=== PATIENT | female | born 1970 | race Caucasian/White ===

== ENCOUNTER 2016-09-15 08:38 | Emergency (ER) | payer MEDICAID ==
[~2016-09-15] VITALS: Ht 152.4 cm; Wt 91.2 kg
[~2016-09-15 08:38] MED LIST: BEN25 PO; IBUP400T22 PO; PRED20TA PO
[2016-09-15 08:39] VITALS: Ht 152.4 cm; Wt 91.2 kg
[2016-09-15] MEDS ORDERED: LIDOCAINE/MYLANTA 40 ML BTL PO STA (08:58)
[2016-09-15] MEDS ORDERED: FAMOTIDINE 20 MG TAB PO STA (08:58)
[2016-09-15] MEDS ORDERED: KETOROLAC 30 MG INJ IM STA (08:58)
[2016-09-15] MEDS ORDERED: BELLADONNA/PHENOBARBITAL TAB PO STA (08:58)
[2016-09-15] MEDS ORDERED: LORAZEPAM 0.5 MG TAB PO ONE (09:00)
[2016-09-15] MEDS ORDERED: MAG355OR14 PO (09:01)
[2016-09-15] MEDS ORDERED: ALPR0.5T PO (09:01)
[2016-09-15] MEDS ORDERED: FAMO40TA52 PO (09:01)
[2016-09-15] MEDS ORDERED: ONDA4TAB8 PO (09:01)
[2016-09-15 10:05] VITALS: BP 134/70; PULSE 86; RESP 16; TEMP 98.4
--- NOTE | 2016-09-15 11:35 | ERD ---
ER Documentation Chief Complaint Date/Time DATE: 09/15/16 TIME: 11:34 Chief Complaint AP WITH VOMITING AND DIARRHEA SINCE YESTERDAY HPI 46-year-old woman presents with full body paresthesias including around the mouth and hands bilaterally, also complains of sharp burning epigastric abdominal pain with intermittent episodes of loose stools and vomiting since yesterday, although she states she has been able to tolerate p.o. and ate breakfast this morning and has had no blood per rectum or melena. Patient denies weight loss, no fevers or chills, no dysuria, no chest pain or shortness of breath. ROS All systems reviewed and are negative except as per history of present illness. Medications Home Meds Active Scripts Ondansetron Hcl* (Zofran*) 4 Mg Tablet, 4 MG PO Q8H Y for NAUSEA AND/OR VOMITING , #15 TAB Prov:SUBHASH MARTINEZ MD 09/15/16 Alprazolam* (Xanax*) 0.5 Mg Tab, 0.5 MG PO TID for ANXIETY, #15 TAB Prov:SUBHASH MARTINEZ MD 09/15/16 Famotidine* (Famotidine*) 40 Mg Tablet, 40 MG PO HS, #30 TAB Prov:SUBHASH MARTINEZ MD 09/15/16 Mag Hydrox/Al Hydrox/Simeth (Maalox Advanced Suspension) 355 Ml Oral.susp, 2 TSP PO TID, #24 OZ Prov:SUBHASH MARTINEZ MD 09/15/16 Discontinued Scripts Prednisone* (Prednisone*) 20 Mg Tab, 40 MG PO DAILY for 4 Days, TAB Prov:BAY RAMOS 05/26/16 Diphenhydramine Hcl* (Benadryl*) 25 Mg Cap, 25 MG PO Q6, #30 CAP Prov:BAY RAMOS 05/26/16 Ibuprofen* (Motrin*) 400 Mg Tab, 400 MG PO Q6H Y for PAIN AND OR ELEVATED TEMP, #30 TAB Prov:VEE AVERY PA-C 04/06/16 Allergies Allergies: Coded Allergies: No Known Drug Allergy (Verified Allergy, Unknown, 09/15/16) PMhx/Soc Anxiety, gastritis, obesity History of Surgery: Yes () Anesthesia Reaction: No Hx Neurological Disorder: No Hx Respiratory Disorders: No Hx Cardiac Disorders: No Hx Psychiatric Problems: No Hx Miscellaneous Medical Probl: No Hx Alcohol Use: No Hx Substance Use: No Hx Tobacco Use: Yes Smoking Status: Former smoker FmHx Family History: No diabetes Physical Exam Vitals Vital Signs Date Time Temp Pulse Resp B/P Pulse Ox O2 Delivery O2 Flow Rate FiO2 09/15/16 10:05 98.4 86 16 134/70 100 Room Air 09/15/16 09:03 131/70 09/15/16 08:57 98.6 85 16 100 Room Air 09/15/16 08:39 97.8 90 18 110/56 99 Physical Exam GENERAL: Well-developed, well-nourished, anxious HEENT: Moist mucous membranes, pink conjunctiva, no cervical spine tenderness or step-off deformities, no goiter, no jaundice or icterus, extraocular movements intact without pain. No submandibular induration, and no pharyngeal erythema NEURO: Alert and oriented 3, cranial nerves II through XII intact bilaterally, pupils equal round reactive to light, no focal deficits or facial asymmetry, sensation intact distally Strength 5/5 in upper and lower extremities bilaterally CARDIAC: Regular rate and rhythm, no murmurs rubs or gallops LUNGS: Clear bilaterally no wheezing crackles or stridor ABDOMEN: Soft nontender, no guarding, no rigidity, no rebound, no psoas sign no obturator sign. Normoactive bowel sounds SKIN: Warm and dry to touch, no abrasions, contusions, or hematomas, no lacerations, no ecchymosis, no target lesions, and without ulcers EXTREMITIES: No clubbing cyanosis or edema, calves are bilaterally symmetrical, no Homans sign, no popliteal cord sign. Distal pulses equal and bilateral PSYCH: Appears anxious Results 24 hrs Current Medications Medications (Trade) Dose Ordered Sig/Agnes Route PRN Reason Start Time Stop Time Status Last Admin Dose Admin Ketorolac Tromethamine (Toradol) 30 mg ONCE STAT IM 09/15/16 08:58 09/15/16 09:00 DC 09/15/16 09:11 Famotidine (Pepcid) 40 mg ONCE STAT PO 09/15/16 08:58 09/15/16 09:00 DC 09/15/16 09:11 Miscellaneous Medication (Gi Cocktail (2)) 40 ml ONCE STAT PO 2/15/17 08:58 09/15/16 09:00 DC 09/15/16 09:10 Belladonna/ Phenobarbital () 2 tab ONCE STAT PO 09/15/16 08:58 09/15/16 09:00 DC 09/15/16 09:11 Lorazepam (Ativan) 0.5 mg ONCE ONCE PO 09/15/16 09:00 09/15/16 09:01 DC 09/15/16 09:11 Procedures/[facility] I administered lorazepam 0.5 mg p.o. for his symptoms as well as a GI cocktail 50 cc p.o., famotidine 40 mg p.o., Toradol 30 mg intramuscular injection. EKG performed, read by me: 84 bpm, normal sinus rhythm, normal axis, no acute ST segment changes, narrow QRS complex, with good R-wave progression in precordial leads. Differential diagnoses considered, included but not limited to acute coronary syndrome, pulmonary embolism, aortic dissection, abdominal aortic aneurysm, sepsis, stroke, meningitis, encephalitis, pneumonia, appendicitis, cholecystitis , bowel obstruction, pyelonephritis, nephrolithiasis, cystitis, as well as metabolic, hematologic, and electrolyte abnormalities. As well as abscess, cellulitis, fractures, and dislocations. Patient feels much better at this time, and vital signs are normal, symptoms have improved. I did give strict instructions to return to the ED if symptoms continue or worsen, patient will otherwise follow-up with primary care physician. Patient understood instructions and agreed to plan. Departure Diagnosis: Primary Impression: Anxiety Additional Impression: Gastritis Gastritis type: unspecified gastritis Chronicity: acute Gastritis bleeding : without bleeding Qualified Code: K29.00 - Acute gastritis without hemorrhage, unspecified gastritis type Condition: Good Patient Instructions: Anxiety Reaction, Gastritis Vs. Ulcer, Vomiting And Diarrhea, Nonspecific (Adult) SUBHASH MARTINEZ MD Sep 15, 2016 11:35
== END 2016-09-15 10:00 | disposition home or self-care (01) ==
LOC: E/R 08:38
DX: F41.9 Anxiety disorder, unspecified (principal); K29.00 Acute gastritis without bleeding; R11.10 Vomiting, unspecified; Z87.891 Personal history of nicotine dependence
CPT/HCPCS: 96372; J1885; Z7502; Z7610; 93005

== ENCOUNTER 2018-02-16 16:26 | Emergency (ER) | END 2018-02-16 18:45 | disposition home or self-care (01) ==

== ENCOUNTER 2018-12-18 05:17 | Emergency (ER) | payer BC, MEDICAID ==
[~2018-12-18] VITALS: Ht 154.9 cm; Wt 83.0 kg
[~2018-12-18 05:17] MED LIST changes: +ACYC800T PO; +ALPR0.5T PO; -BEN25 PO; +FAMO40TA5 PO; +IBUP-1542 PO; -IBUP400T22 PO; +MAG355OR14 PO; +ONDA4TAB8 PO; -PRED20TA PO
[2018-12-18 05:24] VITALS: BP 124/84; PULSE 85; RESP 18; Ht 154.9 cm; Wt 83.0 kg
[2018-12-18] MEDS ORDERED: KETOROLAC 30 MG INJ IM STA (06:02)
[2018-12-18] MEDS ORDERED: BACL10TA PO (06:04)
[2018-12-18] MEDS ORDERED: IBUP-1542 PO (06:04)
--- NOTE | 2018-12-18 06:11 | ERD ---
ER Documentation Chief Complaint Chief Complaint R sided neck pain x a day HPI Patient is a 48-year-old female presents the ER for concerns of right-sided neck pain x1 day. Patient denies falls or trauma. Patient denies fevers or chills. Patient denies any neck stiffness. Patient denies any lower back pain, saddle anesthesia, urine incontinence or stool incontinence. Patient denies any nausea or vomiting. Patient denies any chest pain or shortness of breath. Patient states she did try taking Tylenol with no alleviation of symptoms. Patient states she works in the [employer]. ROS All systems reviewed and are negative except as per history of present illness. Medications Home Meds Active Scripts Baclofen* (Baclofen*) 10 Mg Tablet, 10 MG PO Q8, #15 TAB Prov:LINDA HERNANDEZ PA-C 12/18/18 Ibuprofen* (Motrin*) 600 Mg Tab, 600 MG PO Q6, #30 TAB Prov:LINDA HERNANDEZ PA-C 12/18/18 Ibuprofen* (Ibuprofen*) 600 Mg Tablet, 600 MG PO Q6H PRN for PAIN, #30 TAB Prov:JAE ALICEA DO 02/16/18 Acyclovir* (Acyclovir*) 800 Mg Tablet, 800 MG PO 5 TIMES DAILY for shingles rash for 7 Days, #35 TAB Prov:JAE ALICEA DO 02/16/18 Ondansetron Hcl* (Zofran*) 4 Mg Tablet, 4 MG PO Q8H PRN for NAUSEA AND/OR VOM ITING, #15 TAB Prov:SUBHASH MARTINEZ MD 09/15/16 Alprazolam* (Xanax*) 0.5 Mg Tab, 0.5 MG PO TID for ANXIETY, #15 TAB Prov:SUBHASH MARTINEZ MD 09/15/16 Famotidine* (Famotidine*) 40 Mg Tablet, 40 MG PO HS, #30 TAB Prov:SUBHASH MARTINEZ MD 09/15/16 Mag Hydrox/Al Hydrox/Simeth (Maalox Advanced Suspension) 355 Ml Oral.susp, 2 TSP PO TID, #24 OZ Prov:SUBHASH MARTINEZ MD 09/15/16 Allergies Allergies: Coded Allergies: No Known Drug Allergy (Verified Allergy, Unknown, 09/15/16) PMhx/Soc History of Surgery: Yes () Anesthesia Reaction: No Hx Neurological Disorder: No Hx Respiratory Disorders: No Hx Cardiac Disorders: No Hx Psychiatric Problems: No Hx Miscellaneous Medical Probl: No Hx Alcohol Use: No Hx Substance Use: No Hx Tobacco Use: Yes Smoking Status: Never smoker FmHx Family History: No diabetes Physical Exam Vitals Vital Signs Date Temp Pulse Resp B/P (MAP) Pulse Ox O2 O2 Flow FiO2 Time Delivery Rate 12/18/18 98.1 85 18 124/84 100 05:24 (97) Physical Exam GENERAL: Well-developed, well-nourished female. Appears in no acute distress. Speaking in full sentences. HEAD: Normocephalic, atraumatic. EYES: Pupils are equally reactive bilaterally. EOMs grossly intact. No conjunctival erythema. ENT: Moist mucous membranes. No uvula deviation. No kissing tonsils. NECK: Supple. No meningismus. Normal range of motion of the neck. Tender to palpation of the right trapezius muscle. No cervical midline tenderness. LUNG: Clear to auscultation bilaterally. No rhonchi, wheezing, rales or coarse breath sounds. HEART: Regular rate and rhythm. No murmurs, rubs or gallops. BACK: No midline tenderness. EXTREMITIES: Equal pulses bilaterally. No peripheral clubbing, cyanosis or edema. No unilateral leg swelling. NEUROLOGIC: Alert and oriented. Moving all four extremities without any difficulty. Normal speech. Steady gait. SKIN: Normal color. Warm and dry. No rashes or lesions. Results 24 hrs Current Medications Medications Dose Sig/Agnes Start Time Status Last (Trade) Ordered Route PRN Stop Time Admin Dose Reason Admin Ketorolac 30 mg ONCE STAT 12/18/18 DC Tromethamine IM 06:02 (Toradol) 12/18/18 06:03 Procedures/MDM MEDICAL DECISION MAKING: This is a 48-year-old female presents ER for concerns of right-sided neck pain x1 day.. Vital signs were reviewed. Patient was afebrile. On exam, patient did have tenderness to palpation of her right trapezius muscles. Pain was reproducible. Patient was given Toradol IM. Urine test was negative. At this time, the patient presentation is most consistent with muscle spasm. Patient will be given short course of baclofen. Patient advised not to take this medication when driving or operating any machinery. Low suspicion for cervical spine dislocation, cervical spine fracture, epidural abscess, cervical disk herniation, osteomyelitis, meningitis, whiplash injury or any acute neurological deficit. PRESCRIPTIONS: Ibuprofen Baclofen DISCHARGE: At this time, patient is stable for discharge and outpatient management. RICE therapy and ROM exercises were advised to avoid stiffness. I have instructed the patient to follow-up with his/her primary care physician in 1-2 days. I have discussed with the patient the possibility of needing to see an medical care evaluation specialist for further workup and imaging if the pain persists. I have instructed the patient to promptly return to the ER for any new or worsening symptoms including increased pain, swelling, redness, warmth or fever. The patient and/or family expressed understanding of and agreement with this plan. All questions were answered. Home care instructions were provided. Disclaimer: Inadvertent spelling and grammatical errors are likely due to EHR/dictation software use and do not reflect on the overall quality of patient care. Also, please note that the electronic time recorded on this note does not necessarily reflect the actual time of the patient encounter. Departure Diagnosis: Primary Impression: Muscle spasms of neck Condition: Stable Patient Instructions: Muscle Spasm Referrals: [facility] YOU HAVE RECEIVED A MEDICAL SCREENING EXAM AND THE RESULTS INDICATE THAT YOU DO NOT HAVE A CONDITION THAT REQUIRES URGENT TREATMENT IN THE EMERGENCY DEPARTMENT. FURTHER EVALUATION AND TREATMENT OF YOUR CONDITION CAN WAIT UNTIL YOU ARE SEEN IN YOUR DOCTORS OFFICE WITHIN THE NEXT 1-2 DAYS. IT IS YOUR RESPONSIBILITY TO MAKE AN APPOINTMENT FOR FOLOW-UP CARE. IF YOU HAVE A PRIMARY DOCTOR --you should call your primary doctor and schedule an appointment IF YOU DO NOT HAVE A PRIMARY DOCTOR YOU CAN CALL OUR PHYSICIAN REFERRAL HOTLINE AT IF YOU CAN NOT AFFORD TO SEE A PHYSICIAN YOU CAN CHOSE FROM THE FOLLOWING [facility] [address] [facility] [address] [facility] [facility] [address] [facility] [address] [facility] [address] [facility]. [facility]. [address] [facility] YOU HAVE RECEIVED A MEDICAL SCREENING EXAM AND THE RESULTS INDICATE THAT YOU DO NOT HAVE A CONDITION THAT REQUIRES URGENT TREATMENT IN THE EMERGENCY DEPARTMENT. FURTHER EVALUATION AND TREATMENT OF YOUR CONDITION CAN WAIT UNTIL YOU ARE SEEN IN YOUR DOCTORS OFFICE WITHIN THE NEXT 1-2 DAYS. IT IS YOUR RESPONSIBILITY TO MAKE AN APPOINTMENT FOR FOLOW-UP CARE. IF YOU HAVE A PRIMARY DOCTOR --you should call your primary doctor and schedule and appointment IF YOU DO NOT HAVE A PRIMARY DOCTOR YOU CAN CALL OUR PHYSICIAN REFERRAL HOTLINE AT . IF YOU CAN NOT AFFORD TO SEE A PHYSICIAN YOU CAN CHOSE FROM THE FOLLOWING [facility] INSTITUTIONS: [facility] [address] [place] [address] [facility] [address] [place] [address] [facility] + [facility] [address] [place] [address] Additional Instructions: Llame al doctor MAANA y dannie urvashi BLADE PARA DENTRO DE 1-2 [place].Dgale a la secretaria que nosotros le instruimos hacer esta blade.Avise o llame si [place] condicin se empeora antes de la blade. Regresa aqui si peor o no mejor. LINDA HERNANDEZ PA-C December 18, 2018 06:11
== END 2018-12-18 06:17 | disposition home or self-care (01) ==
LOC: FTE 05:17
DX: M62.838 Other muscle spasm (principal); Z87.891 Personal history of nicotine dependence
CPT/HCPCS: 81025; 96372; J1885; Z7502

== ENCOUNTER 2019-02-02 07:32 | Emergency (ER) | payer BC ==
[~2019-02-02] VITALS: Ht 157.5 cm; Wt 83.7 kg
[~2019-02-02 07:32] MED LIST changes: +BACL10TA PO
[2019-02-02 07:38] VITALS: BP 124/60; PULSE 81; RESP 18; Ht 157.5 cm; Wt 83.7 kg
[2019-02-02] MEDS ORDERED: IBUPROFEN 800 MG TAB PO ONE (08:00)
[2019-02-02] MEDS ORDERED: NAPR-985 PO (08:39)
--- NOTE | 2019-02-02 09:32 | ERD ---
ER Documentation Chief Complaint Chief Complaint lt hand pain x 2 weeks HPI 48-year-old female presenting with left hand pain. 2 weeks ago patient was cleaning her closet and a box fell on her left wrist. Patient has had pain with twisting ever since. She has not taken medications for her symptoms. She is right-hand dominant. Denies medical problems. NKDA. Social history and hernia. Social history smokes 2 cigarettes a day. ROS All systems reviewed and are negative except as per history of present illness. Medications Home Meds Active Scripts Naproxen* (Naprosyn*) 500 Mg Tablet, 500 MG PO BID PRN for PAIN AND/OR INFLAMMA TION, #30 TAB Prov:JESUS CARTY PA-C 02/02/19 Baclofen* (Baclofen*) 10 Mg Tablet, 10 MG PO Q8, #15 TAB Prov:LINDA HERNANDEZ PA-C 12/18/18 Ibuprofen* (Motrin*) 600 Mg Tab, 600 MG PO Q6, #30 TAB Prov:LINDA HERNANDEZ PA-C 12/18/18 Ibuprofen* (Ibuprofen*) 600 Mg Tablet, 600 MG PO Q6H PRN for PAIN, #30 TAB Prov:JAE ALICEA DO 02/16/18 Acyclovir* (Acyclovir*) 800 Mg Tablet, 800 MG PO 5 TIMES DAILY for shingles rash for 7 Days, #35 TAB Prov:JAE ALICEA DO 02/16/18 Ondansetron Hcl* (Zofran*) 4 Mg Tablet, 4 MG PO Q8H PRN for NAUSEA AND/OR VOMITING, #15 TAB Prov:SUBHASH MARTINEZ MD 09/15/16 Alprazolam* (Xanax*) 0.5 Mg Tab, 0.5 MG PO TID for ANXIETY, #15 TAB Prov:SUBHASH MARTINEZ MD 09/15/16 Famotidine* (Famotidine*) 40 Mg Tablet, 40 MG PO HS, #30 TAB Prov:SUBHASH MARTINEZ MD 09/15/16 Mag Hydrox/Al Hydrox/Simeth (Maalox Advanced Suspension) 355 Ml Oral.susp, 2 TSP PO TID, #24 OZ Prov:SUBHASH MARTINEZ MD 09/15/16 Allergies Allergies: Coded Allergies: No Known Drug Allergy (Verified Allergy, Unknown, 09/15/16) PMhx/Soc Medical and Surgical Hx: pt denies Medical Hx History of Surgery: Yes () Anesthesia Reaction: No Hx Neurological Disorder: No Hx Respiratory Disorders: No Hx Cardiac Disorders: No Hx Psychiatric Problems: No Hx Miscellaneous Medical Probl: No Hx Alcohol Use: No Hx Substance Use: No Hx Tobacco Use: Yes Smoking Status: Current some day smoker FmHx Family History: No diabetes, No coronary disease, No other Physical Exam Vitals Vital Signs Date Temp Pulse Resp B/P (MAP) Pulse Ox O2 O2 Flow FiO2 Time Delivery Rate 02/02/19 98.1 81 18 124/60 99 07:38 (81) Physical Exam GENERAL: The patient is well-appearing, well-nourished, in no acute distress CHEST: Clear to auscultation bilaterally. There are no rales, wheezes or rhonchi. HEART: Regular rate and rhythm. No murmurs, clicks, rubs or gallops. No S3 or S4. EXTREMITIES: Strength 5 out of 5 to left wrist. No pain with palpation no deformity however patient has mild pain with rotational movements. Strength 5 out of 5 with flexion and extension. NEUROLOGIC: Alert and oriented. Cranial nerves II through XII intact. Motor strength in all 4 extremities with 5 out of 5 strength. Sensation grossly intact. Normal speech and gait. Babinski negative. DTR 2+ throughout. SKIN: There is no apparent rash or petechiae. The skin is warm and dry. Results 24 hrs Current Medications Medications Dose Sig/Agnes Start Time Status Last (Trade) Ordered Route PRN Stop Time Admin Dose Reason Admin Ibuprofen 800 mg ONCE ONCE 02/02/19 DC 02/02/19 (Motrin) PO 08:00 02/02/19 07:58 08:01 Procedures/MDM DIAGNOSTIC IMAGING REPORT Patient: EARLE MORALES : 1970 Age: 48 Sex: F [id number] [id number] DOS: 02/02/19 0755 Ordering MD: PEDRO PABLO CARTY PA-C Location: [facility] Room/Bed: PROCEDURE: XR Left Wrist with Navicular View CLINICAL INDICATION: Wrist pain TECHNIQUE: PA, lateral, and oblique views as well as a carpal navicular view were submitted. COMPARISON: None FINDINGS: Osseous structures: appear well mineralized and intact with no fracture or destructive process identified. Joint spaces: are well maintained with no significant erosions or spurring identified. Soft tissues: appear unremarkable. IMPRESSION: Unremarkable left wrist with navicular view. ER course: Wrist splint applied in ED. Neuro intact pre-and post splint application. MDM 48-year-old female presenting with wrist pain. I have low suspicion for acute fracture dislocation. I have low suspicion for neurovascular deficit or tendon or ligament rupture. Patient likely has a strain. Patient is recommended to ice and slowly strengthen while wearing the splint for support. Patient is told symptoms change or worsen to return immediately to the ER. All questions answered at discharge Departure Diagnosis: Primary Impression: Wrist sprain Condition: Stable Patient Instructions: Wrist Sprain Referrals: [facility] YOU HAVE RECEIVED A MEDICAL SCREENING EXAM AND THE RESULTS INDICATE THAT YOU DO NOT HAVE A CONDITION THAT REQUIRES URGENT TREATMENT IN THE EMERGENCY DEPARTMENT. FURTHER EVALUATION AND TREATMENT OF YOUR CONDITION CAN WAIT UNTIL YOU ARE SEEN IN YOUR DOCTORS OFFICE WITHIN THE NEXT 1-2 DAYS. IT IS YOUR RESPONSIBILITY TO MAKE AN APPOINTMENT FOR FOLOW-UP CARE. IF YOU HAVE A PRIMARY DOCTOR --you should call your primary doctor and schedule an appointment IF YOU DO NOT HAVE A PRIMARY DOCTOR YOU CAN CALL OUR PHYSICIAN REFERRAL HOTLINE AT IF YOU CAN NOT AFFORD TO SEE A PHYSICIAN YOU CAN CHOSE FROM THE FOLLOWING [facility] [address] [facility]. [facility] [address] [facility] [facility]. [facility] [address] [facility]. [facility] [address] [facility]. [facility] [address] [facility]. [facility]. [address] Additional Instructions: FOLLOW UP WITH YOUR PRIMARY CARE PHYSICIAN TOMORROW.Return to this facility if you are not improving as expected. JESUS CARTY PA-C Feb 02, 2019 09:32
== END 2019-02-02 08:50 | disposition home or self-care (01) ==
LOC: FTE 07:32
DX: S63.502A Unspecified sprain of left wrist, initial encounter (principal); F17.210 Nicotine dependence, cigarettes, uncomplicated; W20.8XXA Other cause of strike by thrown, projected or falling object, initial encounter; Y92.9 Unspecified place or not applicable
CPT/HCPCS: 29125; 73110; Z7610